=== PATIENT | female | born 1975 | race Two or more races ===

== ENCOUNTER 2017-06-23 14:52 | Emergency (ER) | payer OTHER ==
[~2017-06-23] VITALS: Ht 160 cm; Wt 54.9 kg
== END 2017-06-23 22:45 | disposition home or self-care (01) ==
LOC: CED 14:52
DX: S05.02XA Injury of conjunctiva and corneal abrasion without foreign body, left eye, initial encounter (principal); Z21 Asymptomatic human immunodeficiency virus [HIV] infection status; Z98.51 Tubal ligation status; W01.198A Fall on same level from slipping, tripping and stumbling with subsequent striking against other object, initial encounter
CPT/HCPCS: 99283